=== PATIENT | female | born 1965 | race Caucasian/White ===

== ENCOUNTER 2016-09-22 18:21 | Inpatient (IN) | payer OTHER ==
[2016-09-22 18:21] VITALS: BMI 30.9
[2016-09-22] MEDS ORDERED: Enoxaparin 40 mg Syringe SC STA (20:27)
--- NOTE | 2016-09-22 20:31 | C.PDOC ---
History Of Present Illness 50 y/o female presents to ED for wound check. Patient states she had a right ankle surgery on 09/09/16 in [place] s/p fall and fracture. PT returned home yesterday, followed up with PMD today who instructed to come to ED for further evaluation. Patient states she has finished antibiotics and pain medication given by surgeon in [place]. Patient denies active bleeding, fever, SOB, no change in sensation, discharge or any other complaints at this time. Using wheelchair to get around, not bearing weight. Time Seen by Provider: 09/22/16 18:30 Chief Complaint (Nursing): Wound Check History Per: Patient, Family History/Exam Limitations: no limitations Onset/Duration Of Symptoms: Days Ago Location Of Injury: Right: Foot Past Medical History Reviewed: Historical Data, Nursing Documentation, Vital Signs Vital Signs: Last Vital Signs Temp 98.1 F 09/22/16 22:15 Pulse 93 H 09/22/16 22:15 Resp 22 09/22/16 22:15 BP 121/67 09/22/16 22:15 Pulse Ox 99 09/22/16 22:15 - Medical History PMH: Arthritis, Gall Bladder Disease, HTN, Hypercholesterolemia Family History: States: No Known Family Hx - Social History Hx Tobacco Use: No Hx Alcohol Use: No Hx Substance Use: No - Immunization History Hx Tetanus Toxoid Vaccination: No Hx Influenza Vaccination: Yes Hx Pneumococcal Vaccination: No Review Of Systems Except As Marked, All Systems Reviewed And Found Negative. Constitutional: Negative for: Fever, Chills Musculoskeletal: Positive for: Foot Pain Skin: Negative for: Rash Neurological: Negative for: Weakness, Numbness Physical Exam - Physical Exam Appears: Non-toxic, In Acute Distress (painful distress) Skin: Warm, Dry Head: Atraumatic, Normacephalic Eye(s): bilateral: Normal Inspection, EOMI Nose: Normal Oral Mucosa: Moist Neck: Normal ROM, Supple Chest: Symmetrical Cardiovascular: Rhythm Regular Respiratory: Normal Breath Sounds, No Accessory Muscle Use Extremity: No Normal ROM, Tenderness (diffuse), Calf Tenderness (mild), Capillary Refill (< 2 sec), No Deformity, Swelling (Diffuse swelling to foot and ankle with ecchymosis and mild erythema; small incision to lateral aspect w/ 4 ninfa no discharge, no erythema. Medial aspect : 4cm incision w/multiple ninfa mild erythema, no discharge), Other (Patient has a posterior splint on right foot) Pulses: Left Dorsalis Pedis: Normal, Right Dorsalis Pedis: Normal Neurological/Psych: Oriented x3, Normal Speech, Normal Sensation Gait: Unable To Assess ED Course And Treatment - Laboratory Results Result Diagrams: 09/22/16 21:52 09/22/16 21:52 O2 Sat by Pulse Oximetry: 97 (RA) Pulse Ox Interpretation: Normal Progress Note: Splint was removed and changed, no signs of infection. Patient was offered crutches but is unable to sustain balance, at baseline unsteady secondary to brain tumor and back surgery. Case discussed with Dr. Carson who agrees for patient to be admitted Disposition - Disposition Referrals: Silva Carson MD [Primary Care Provider] - Dwaine Greco MD [Staff Provider] - Disposition: HOME/ ROUTINE Disposition Time: 20:29 Condition: STABLE Additional Instructions: Rest, ice and elevate the area. Return to ER tomorrow for vascular test. Follow up with bone doctor in 1-2 days. Follow up with PMD in 1-2 days for further evaluation. Prescriptions: traMADol [Ultram] 50 mg PO Q8 #20 tab Instructions: Ankle Fracture (ED) - Clinical Impression Clinical Impression: Ankle fracture, Unsteady gait - PA / MEDICAL BILLING CODER / Resident Statement MD/DO has reviewed & agrees with the documentation as recorded. - Scribe Statement The provider has reviewed the documentation as recorded by the Alyibgurpreet Horn All medical record entries made by the Alyibgurpreet were at my direction and personally dictated by me. I have reviewed the chart and agree that the record accurately reflects my personal performance of the history, physical exam, medical decision making, and the department course for this patient. I have also personally directed, reviewed, and agree with the discharge instructions and disposition.
[2016-09-22] MEDS ORDERED: Enoxaparin 80 mg Syringe ONE (20:34)
[2016-09-22 21:56] LABS: BASO # 0.1 K/uL (0.0-0.2); BASO % 0.7 % (0.0-2.0); EOS # 0.2 K/uL (0.0-0.7); EOS % 1.9 % (0.0-4.0); HEMATOCRIT 31.8 % (34.0-47.0); LYMPH # 3.4 K/uL (1.0-4.3); LYMPH % 40.3 % (20.0-40.0); MEAN CELL VOLUME 76.1 fL (81.0-99.0); MEAN CORPUSCULAR HGB CONC 31.5 g/dL (33.0-37.0); MONO # 0.6 K/uL (0.0-0.8); MONO % 6.7 % (0.0-10.0); NRBC % 0.1 % (0.0-2.0); RED CELL DISTRIBUTION WIDTH 17.7 % (11.5-14.5); WHITE BLOOD COUNT 8.4 K/uL (4.8-10.8)
[2016-09-22] MEDS ORDERED: Morphine 4 MG/ML VIAL ONE (22:06)
[2016-09-22] MEDS ORDERED: Sodium Chloride 0.9% 1,000 ML ONE (22:07)
[2016-09-22 22:08] LABS: CHLORIDE 97 mmol/L (98-107)
[2016-09-22 22:09] LABS: POTASSIUM 4.3 mmol/L (3.6-5.2); SODIUM 136 mmol/L (132-148)
[2016-09-22 22:12] LABS: ALKALINE PHOSPHATASE 83 U/L (38-126); ALT/SGPT 34 U/L (9-52); AST/SGOT 33 U/L (14-36); BILIRUBIN,TOTAL 0.6 mg/dL (0.2-1.3); BLOOD UREA NITROGEN 7 mg/dL (7-17); CALCIUM 9.4 mg/dl (8.6-10.4); CARBON DIOXIDE 25 mmol/L (22-30); GFR AFRICAN-AMERICAN > 60; GLUCOSE,RANDOM 171 mg/dL (65-105); TOTAL PROTEIN 7.9 g/dL (6.3-8.3)
[2016-09-22] MEDS: Sodium Chloride 0.9% 1,000 ML IV SCH (22:15)
[2016-09-22 22:35] LABS: RBC URINE 18 /hpf (0-3); TRANSITIONAL EPITHIAL 3 /hpf (0-3); URINE BACTERIA OCC (<OCC); URINE BILIRUBIN NEGATIVE (NEGATIVE); URINE BLOOD 1+ (NEGATIVE); URINE COLOR Yellow (YELLOW); URINE GLUCOSE (UA) NORMAL (Normal); URINE KETONE NEGATIVE (NEGATIVE); URINE LEUKOCYTE ESTERASE 3+ Leu/uL (Negative); URINE PROTEIN NEGATIVE (NEGATIVE); URINE UROBILINOGEN NORMAL mg/dL (0.2-1.0); WBC URINE 83 /hpf (0-5)
[2016-09-22 23:07] VITALS: RESP 20
[2016-09-23] MEDS: Sodium Chloride 0.9% 1,000 ML IV SCH ×3 (06:23→21:46)
[2016-09-23] MEDS: (Novolog) Insulin Aspart, Recombinant 100 u/ml 10 ml vial SC SCH ×4 (08:15→21:47)
--- NOTE | 2016-09-23 09:01 | RAD ---
PROCEDURE: Right Ankle Radiographs. HISTORY: trauma, s/p surgery COMPARISON: None FINDINGS: BONES: A horizontal complete medial malleoli are fracture and a the comminuted spiral type distal fibular metaphyseal fracture are suggested. Medium malleolar fracture ends are approximately 2 mm. No further displacement appreciated. The posterior malleolus is not clearly appreciated -is overlying bony anatomy here noted. Three pins are present 1 and distal fibular fracture 2 its fixing the medial malleolar fracture at the tip of these pins project beyond the lateral tibial cortex frontal view. A medial malleoli are screw projects diagonally projects anteriorly in the lateral view. No 3 mm or greater displaced fracture fragments note. No dislocation noted the fibular fracture extends into the tibial fibular syndesmosis. The medial malleolar fractures at the B of plafond level with intra-articular extension noted Casting splinting and skin ninfa are present Posterior and inferior calcaneal spurring and dorsal mid tarsal osseous spurring are present. JOINTS: Fracture extensions as above. . Ankle mortise maintained. Talar dome intact SOFT TISSUES: Postop changes OTHER FINDINGS: Postop changes IMPRESSION: Status post reduction and internal fixation of a bimalleolar fracture.
[2016-09-23] MEDS ORDERED: Ergocalciferol 50,000 Intl Units Cap PO SCH (10:00)
--- NOTE | 2016-09-23 10:02 | CP.PCM.HP ---
Past Patient History - Past Medical History & Family History Past Medical History?: Yes - Past Social History Smoking Status: Never Smoked - CARDIAC Hx Cardiac Disorders: Yes Hx Hypercholesterolemia: Yes Hx Hypertension: Yes - PULMONARY Hx Respiratory Disorders: No - NEUROLOGICAL Hx Neurological Disorder: Yes (NEUROPATHY) Hx Vertigo: Yes - HEENT Hx HEENT Problems: No - RENAL Hx Chronic Kidney Disease: No - ENDOCRINE/METABOLIC Hx Endocrine Disorders: Yes Hx Diabetes Mellitus Type 2: Yes - HEMATOLOGICAL/ONCOLOGICAL Hx Blood Disorders: No - INTEGUMENTARY Hx Dermatological Problems: No - MUSCULOSKELETAL/RHEUMATOLOGICAL Hx Musculoskeletal Disorders: Yes Hx Arthritis: Yes Hx Falls: Yes - GASTROINTESTINAL Hx Gastrointestinal Disorders: Yes Hx Gall Bladder Disease: Yes - GENITOURINARY/GYNECOLOGICAL Hx Genitourinary Disorders: No - PSYCHIATRIC Hx Psychophysiologic Disorder: No Hx Substance Use: No - SURGICAL HISTORY Hx Surgeries: Yes Hx Musculoskeletal Surgery: Yes (LUMBAR X 2) Other/Comment: R ankle surgery - ANESTHESIA Hx Anesthesia: Yes Hx Anesthesia Reactions: No Hx Malignant Hyperthermia: No Meds Home Medications: Home Medication List Medication Instructions Recorded Confirmed Type traMADol [Ultram] 50 mg PO Q8 #20 tab 09/22/16 Rx Allergies/Adverse Reactions: Allergies Allergy/AdvReac Type Severity Reaction Status Date / Time No Known Allergies Allergy Verified 09/22/16 18:47 Results - Vital Signs Recent Vital Signs: Last Vital Signs Temp 98.0 F 09/23/16 07:40 Pulse 94 H 09/23/16 07:40 Resp 20 09/23/16 07:40 BP 124/83 09/23/16 07:40 Pulse Ox 99 09/23/16 07:40 - Labs Result Diagrams: 09/22/16 21:52 09/22/16 21:52 Labs: Laboratory Results - last 24 hr 09/22/16 09/22/16 09/22/16 21:52 21:52 22:35 WBC 8.4 RBC 4.18 Hgb 10.0 L Hct 31.8 L MCV 76.1 L MCH 24.0 L MCHC 31.5 L RDW 17.7 H Plt Count 385 MPV 7.0 L Neut % (Auto) 50.4 Lymph % (Auto) 40.3 H [place] % (Auto) 6.7 Eos % (Auto) 1.9 Baso % (Auto) 0.7 Neut # 4.2 Lymph # 3.4 [place] # 0.6 Eos # 0.2 Baso # 0.1 Sodium 136 Potassium 4.3 Chloride 97 L Carbon Dioxide 25 Anion Gap 18 BUN 7 Creatinine 0.6 L Est GFR ( Amer) > 60 Est GFR (Non-Af Amer) > 60 POC Glucose (mg/dL) Random Glucose 171 H Calcium 9.4 Total Bilirubin 0.6 AST 33 ALT 34 Alkaline Phosphatase 83 Total Protein 7.9 Albumin 4.0 Globulin 3.9 Albumin/Globulin Ratio 1.0 Urine Color Yellow Urine Clarity Hazy Urine pH 6.0 Ur Specific [place] 1.009 Urine Protein Negative Urine Glucose (UA) Normal Urine Ketones Negative Urine Blood 1+ H Urine Nitrate Negative Urine Bilirubin Negative Urine Urobilinogen Normal Ur Leukocyte Esterase 3+ H Urine WBC (Auto) 83 H Urine RBC (Auto) 18 H Ur Squamous Epith Cells 13 H Ur Transition Epith Cell 3 Urine Bacteria Occ H Ur Yeast w Hyphae Rare H 09/23/16 07:17 WBC RBC Hgb Hct MCV MCH MCHC RDW Plt Count MPV Neut % (Auto) Lymph % (Auto) [place] % (Auto) Eos % (Auto) Baso % (Auto) Neut # Lymph # [place] # Eos # Baso # Sodium Potassium Chloride Carbon Dioxide Anion Gap BUN Creatinine Est GFR ( Amer) Est GFR (Non-Af Amer) POC Glucose (mg/dL) 135 H Random Glucose Calcium Total Bilirubin AST ALT Alkaline Phosphatase Total Protein Albumin Globulin Albumin/Globulin Ratio Urine Color Urine Clarity Urine pH Ur Specific [place] Urine Protein Urine Glucose (UA) Urine Ketones Urine Blood Urine Nitrate Urine Bilirubin Urine Urobilinogen Ur Leukocyte Esterase Urine WBC (Auto) Urine RBC (Auto) Ur Squamous Epith Cells Ur Transition Epith Cell Urine Bacteria Ur Yeast w Hyphae
[2016-09-23] MEDS ORDERED: (Lantus) Insulin Glargine, Recombinant SC ONE (10:08)
[2016-09-23] MEDS: Enoxaparin 40 mg Syringe SC SCH (10:57)
[2016-09-23] MEDS: Calcium-Vit D 500 mg-200 Units Tab UD PO SCH (11:13)
[2016-09-23] MEDS: cefTRIAXone IV 1 gm in Dextros 50 ML IVPB SCH (12:29)
--- NOTE | 2016-09-23 12:41 | CP.PCM.CON ---
History of Present Illness - History of Present Illness History of Present Illness: Orthopedic consultation requested Dr. Greco/Gerhard for right ankle pain 50F complains of right ankle pain after fall 2 weeks ago in [place], where she had surgery for the ankle fracture. She arrived home, and was sent by PMD to ER for ankle pain. She says she has some burning type pain on inside and outside of ankle. She says that she had infection while she was in [place] and was given antibiotics. She has had prior back surgery and walks with cane at baseline. She lives with and has 5 steps. She did not receive any blood thinners post surgery. Son requests staple removal. Son and at bedside. Patient also complains of vaginal itching and discharge. Denies CP/SOB/dizziness/palpitations/numbness/tingling/nausea/vomiting/fever/ chills PMH: HTN, DM II, neuropathy, high cholesterol Review of Systems - Review of Systems All systems: reviewed and no additional remarkable complaints except - Constitutional Additional comments: denies fever/chills - Cardiovascular Cardiovascular: As Per HPI - Respiratory Respiratory: As Per HPI - Gastrointestinal Gastrointestinal: As Per HPI - Musculoskeletal Musculoskeletal: As Per HPI - Neurological Neurological: Frequent Falls Past Patient History - Past Medical History & Family History Past Medical History?: Yes Past Family History: Reviewed and not pertinent - Past Social History Smoking Status: Never Smoked - CARDIAC Hx Cardiac Disorders: Yes Hx Hypercholesterolemia: Yes Hx Hypertension: Yes - PULMONARY Hx Respiratory Disorders: No - NEUROLOGICAL Hx Neurological Disorder: Yes (NEUROPATHY) Hx Vertigo: Yes - HEENT Hx HEENT Problems: No - RENAL Hx Chronic Kidney Disease: No - ENDOCRINE/METABOLIC Hx Endocrine Disorders: Yes Hx Diabetes Mellitus Type 2: Yes - HEMATOLOGICAL/ONCOLOGICAL Hx Blood Disorders: No - INTEGUMENTARY Hx Dermatological Problems: No - MUSCULOSKELETAL/RHEUMATOLOGICAL Hx Musculoskeletal Disorders: Yes Hx Arthritis: Yes Hx Falls: Yes - GASTROINTESTINAL Hx Gastrointestinal Disorders: Yes Hx Gall Bladder Disease: Yes - GENITOURINARY/GYNECOLOGICAL Hx Genitourinary Disorders: No - PSYCHIATRIC Hx Psychophysiologic Disorder: No Hx Substance Use: No - SURGICAL HISTORY Hx Surgeries: Yes Hx Musculoskeletal Surgery: Yes (LUMBAR X 2) Other/Comment: R ankle surgery - ANESTHESIA Hx Anesthesia: Yes Hx Anesthesia Reactions: No Hx Malignant Hyperthermia: No Meds Home Medications: Home Medication List Medication Instructions Recorded Confirmed Type traMADol [Ultram] 50 mg PO Q8 #20 tab 09/22/16 Rx Allergies/Adverse Reactions: Allergies Allergy/AdvReac Type Severity Reaction Status Date / Time No Known Allergies Allergy Verified 09/22/16 18:47 - Medications Medications: Current Medications Aspirin (Ecotrin) 81 mg PO DAILY [facility] Last Admin: 09/23/16 10:55 Dose: 81 mg Calcium/Vitamin D (Oyster Shell Calcium/Vitamin D 500 Mg-200 Iu) 1 tab PO DAILY [facility] Last Admin: 09/23/16 11:13 Dose: 1 tab Cyclobenzaprine HCl (Flexeril) 10 mg PO BID [facility] Last Admin: 09/23/16 10:55 Dose: 10 mg Enoxaparin Sodium (Lovenox) 40 mg SC DAILY [facility] Last Admin: 09/23/16 10:57 Dose: 40 mg Ergocalciferol (Drisdol 50,000 Intl Units Cap) 1 cap PO QWK [facility] Gabapentin (Neurontin) 800 mg PO BID [facility] Glimepiride (Amaryl) 2 mg PO BID [facility] Last Admin: 09/23/16 10:55 Dose: 2 mg Sodium Chloride (Sodium Chloride 0.9%) 1,000 mls @ 100 mls/hr IV .Q10H [facility] Last Admin: 09/23/16 06:23 Dose: 100 mls/hr Ceftriaxone Sodium (Rocephin Iv 1 Gm Duplex) 50 mls @ 100 mls/hr IVPB DAILY [facility] Insulin Aspart (Novolog) 0 unit SC ACHS [facility] PRN Reason: Protocol Last Admin: 09/23/16 08:15 Dose: Not Given Insulin Glargine (Lantus) 15 unit SC HS [facility] Insulin Glargine (Lantus) 40 unit SC ACB [facility] Meclizine HCl (Antivert) 12.5 mg PO BID [facility] Last Admin: 09/23/16 10:55 Dose: 12.5 mg Metformin HCl (Glucophage) 1,000 mg PO BIDBS [facility] Last Admin: 09/23/16 11:10 Dose: 1,000 mg Pneumococcal Polyvalent Vaccine (Pneumovax 23 Vaccine) 0.5 ml IM .ONCE ONE Stop: 09/25/16 10:01 Sitagliptin Phosphate (Januvia) 100 mg PO DAILY [facility] Last Admin: 09/23/16 10:55 Dose: 100 mg Tramadol HCl (Ultram) 50 mg PO BID [facility] Last Admin: 09/23/16 11:10 Dose: 50 mg Physical Exam - Constitutional Appears: Well, No Acute Distress - Head Exam Head Exam: ATRAUMATIC, NORMAL INSPECTION - Neck Exam Neck exam: Positive for: Full Rom, Normal Inspection - Respiratory Exam Respiratory Exam: NORMAL BREATHING PATTERN - Extremities Exam Additional comments: RLE: splint removed, posterior splint in PF noted moderate swelling to foot and ankle, +DP pulse, toes warm, +flex/ext toes. Complains of pain with movement of ankle. Lateral incision intact, medial incision also intact, mild erythema, but entire foot and ankle swollen, more than would be expected for two weeks post operatively. Right calf tender, no palpable cords. Sensation intact. - Neurological Exam Neurological exam: Alert, Oriented x3 - Psychiatric Exam Psychiatric exam: Normal Affect, Normal Mood - Skin Skin Exam: Dry, Warm Additional comments: incisions intact minimal erythema to medial incision site, ?inflammatory Results - Vital Signs Recent Vital Signs: Last Vital Signs Temp 98.0 F 09/23/16 07:40 Pulse 94 H 09/23/16 07:40 Resp 20 09/23/16 07:40 BP 124/83 09/23/16 07:40 Pulse Ox 99 09/23/16 07:40 - Labs Result Diagrams: 09/22/16 21:52 09/22/16 21:52 Labs: Laboratory Results - last 24 hr 09/22/16 09/22/16 09/22/16 21:52 21:52 22:35 WBC 8.4 RBC 4.18 Hgb 10.0 L Hct 31.8 L MCV 76.1 L MCH 24.0 L MCHC 31.5 L RDW 17.7 H Plt Count 385 MPV 7.0 L Neut % (Auto) 50.4 Lymph % (Auto) 40.3 H [place] % (Auto) 6.7 Eos % (Auto) 1.9 Baso % (Auto) 0.7 Neut # 4.2 Lymph # 3.4 [place] # 0.6 Eos # 0.2 Baso # 0.1 Sodium 136 Potassium 4.3 Chloride 97 L Carbon Dioxide 25 Anion Gap 18 BUN 7 Creatinine 0.6 L Est GFR ( Amer) > 60 Est GFR (Non-Af Amer) > 60 POC Glucose (mg/dL) Random Glucose 171 H Calcium 9.4 Total Bilirubin 0.6 AST 33 ALT 34 Alkaline Phosphatase 83 Total Protein 7.9 Albumin 4.0 Globulin 3.9 Albumin/Globulin Ratio 1.0 Urine Color Yellow Urine Clarity Hazy Urine pH 6.0 Ur Specific [place] 1.009 Urine Protein Negative Urine Glucose (UA) Normal Urine Ketones Negative Urine Blood 1+ H Urine Nitrate Negative Urine Bilirubin Negative Urine Urobilinogen Normal Ur Leukocyte Esterase 3+ H Urine WBC (Auto) 83 H Urine RBC (Auto) 18 H Ur Squamous Epith Cells 13 H Ur Transition Epith Cell 3 Urine Bacteria Occ H Ur Yeast w Hyphae Rare H 09/23/16 09/23/16 07:17 11:13 WBC RBC Hgb Hct MCV MCH MCHC RDW Plt Count MPV Neut % (Auto) Lymph % (Auto) [place] % (Auto) Eos % (Auto) Baso % (Auto) Neut # Lymph # [place] # Eos # Baso # Sodium Potassium Chloride Carbon Dioxide Anion Gap BUN Creatinine Est GFR ( Amer) Est GFR (Non-Af Amer) POC Glucose (mg/dL) 135 H 291 H Random Glucose Calcium Total Bilirubin AST ALT Alkaline Phosphatase Total Protein Albumin Globulin Albumin/Globulin Ratio Urine Color Urine Clarity Urine pH Ur Specific [place] Urine Protein Urine Glucose (UA) Urine Ketones Urine Blood Urine Nitrate Urine Bilirubin Urine Urobilinogen Ur Leukocyte Esterase Urine WBC (Auto) Urine RBC (Auto) Ur Squamous Epith Cells Ur Transition Epith Cell Urine Bacteria Ur Yeast w Hyphae Assessment & Plan (1) Closed bimalleolar fracture of right ankle Assessment and Plan: venous doppler r/o dvt, swelling/long flight VTE proph pt on lovenox IS reapplication of posterior/u splint as splint in plantar flexion elevation, hitch foot of bed ninfa will not be removed as ankle is quite swollen at this time case and imaging reviewed with Dr. Hennessy, no further orthopedic intervention indicated at this time patient will need to f/u as outpatient with serial imaging to assess fracture healing discussed with patient and family at bedside risk of frequent falls/wb could increase risk of fx/non union/malunion strict NWB Status: Acute (2) Unsteady gait Assessment and Plan: PT/OT NWB possible rehab placement Status: Acute (3) Vaginal candidiasis Assessment and Plan: yeast seen on u/a as well possibly secondary to recent antibiotic use diflucan ordered Status: Acute (4) UTI (urinary tract infection) Assessment and Plan: on admission rocephin per Dr. umaña Status: Acute Radiology Interpretation - Notes: Notes:: Patient Name / ID : SHAKIRA ROSE D / [id number] Exam Date : 09/22/2016 19:02:25 ( Approved ) Study Comment : Sex / Age : F / 50Y Creator : Delores Oshea V. Dictator : Delores Oshea V. Office Workforce Planner : Ironworker Machine Operator : Delores Oshea V. Approver2 : Report Date : 09/23/2016 08:59:44 My Comment : PROCEDURE: Right Ankle Radiographs. HISTORY: trauma, s/p surgery COMPARISON: None FINDINGS: BONES: A horizontal complete medial malleoli are fracture and a the comminuted spiral type distal fibular metaphyseal fracture are suggested. Medium malleolar fracture ends are approximately 2 mm. No further displacement appreciated. The posterior malleolus is not clearly appreciated -is overlying bony anatomy here noted. Three pins are present 1 and distal fibular fracture 2 its fixing the medial malleolar fracture at the tip of these pins project beyond the lateral tibial cortex frontal view. A medial malleoli are screw projects diagonally projects anteriorly in the lateral view. No 3 mm or greater displaced fracture fragments note. No dislocation noted the fibular fracture extends into the tibial fibular syndesmosis. The medial malleolar fractures at the B of plafond level with intra-articular extension noted Casting splinting and skin ninfa are present Posterior and inferior calcaneal spurring and dorsal mid tarsal osseous spurring are present. JOINTS: Fracture extensions as above. . Ankle mortise maintained. Talar dome intact SOFT TISSUES: Postop changes OTHER FINDINGS: Postop changes IMPRESSION: Status post reduction and internal fixation of a bimalleolar fracture.
[2016-09-23] MEDS ORDERED: (Lantus) Insulin Glargine, Recombinant SC SCH (22:00)
[2016-09-23] MEDS ORDERED: HYDROmorphone 1 mg/ml ISec IVP PRN (22:22)
[2016-09-24] MEDS: Sodium Chloride 0.9% 1,000 ML IV SCH ×3 (03:45→14:31)
[2016-09-24 06:18] LABS: RBC URINE < 1 /hpf (0-3); URINE BACTERIA MANY (<OCC); URINE BILIRUBIN NEGATIVE (NEGATIVE); URINE BLOOD 1+ (NEGATIVE); URINE COLOR Straw (YELLOW); URINE GLUCOSE (UA) NORMAL (Normal); URINE KETONE NEGATIVE (NEGATIVE); URINE LEUKOCYTE ESTERASE 2+ Leu/uL (Negative); URINE PROTEIN NEGATIVE (NEGATIVE); URINE UROBILINOGEN NORMAL mg/dL (0.2-1.0); WBC URINE 3 /hpf (0-5)
[2016-09-24 06:46] LABS: BASO % 0.6 % (0.0-2.0); EOS # 0.2 K/uL (0.0-0.7); EOS % 3.4 % (0.0-4.0); LYMPH # 2.9 K/uL (1.0-4.3); LYMPH % 57.5 % (20.0-40.0); MEAN CELL VOLUME 76.7 fL (81.0-99.0); MEAN CORPUSCULAR HEMOGLOBIN 24.6 pg (27.0-31.0); MEAN CORPUSCULAR HGB CONC 32.2 g/dL (33.0-37.0); MONO # 0.4 K/uL (0.0-0.8); MONO % 8.4 % (0.0-10.0); NRBC % 0.1 % (0.0-2.0); RED CELL DISTRIBUTION WIDTH 17.2 % (11.5-14.5); WHITE BLOOD COUNT 5.1 K/uL (4.8-10.8)
[2016-09-24 06:53] LABS: CHLORIDE 101 mmol/L (98-107)
[2016-09-24 06:54] LABS: POTASSIUM 4.2 mmol/L (3.6-5.2); SODIUM 138 mmol/L (132-148)
[2016-09-24 06:56] LABS: ALB/GLOB RATIO 1.1 (1.0-2.1); ALKALINE PHOSPHATASE 63 U/L (38-126); AST/SGOT 26 U/L (14-36); BILIRUBIN,TOTAL 0.5 mg/dL (0.2-1.3); BLOOD UREA NITROGEN 3 mg/dL (7-17); CARBON DIOXIDE 29 mmol/L (22-30); GFR AFRICAN-AMERICAN > 60; TOTAL PROTEIN 6.8 g/dL (6.3-8.3)
[2016-09-24 06:57] LABS: ALT/SGPT 25 U/L (9-52); CALCIUM 8.9 mg/dl (8.6-10.4); GLUCOSE,RANDOM 102 mg/dL (65-105)
[2016-09-24] MEDS ORDERED: (Lantus) Insulin Glargine, Recombinant SC SCH (07:30)
[2016-09-24] MEDS: (Novolog) Insulin Aspart, Recombinant 100 u/ml 10 ml vial SC SCH ×3 (08:02→17:37)
[2016-09-24 08:14] VITALS: BP 152/79; PULSE 80; TEMP 97.9; O2SAT 98
--- NOTE | 2016-09-24 09:40 | CP.PCM.PN ---
Subjective - Date & Time of Evaluation Date of Evaluation: 09/24/16 Time of Evaluation: 09:40 - Subjective Subjective: Patient states pain in ankle is controlled. Review of Systems - Review of Systems All systems: reviewed and no additional remarkable complaints except - Musculoskeletal Musculoskeletal: As Par HPI - Neurological Neurological: As Per HPI Objective - Vital Signs/Intake and Output Vital Signs (last 24 hours): Temp Pulse Resp BP Pulse Ox 97.9 F 80 20 152/79 H 98 09/24/16 08:00 09/24/16 08:00 09/24/16 08:00 09/24/16 08:00 09/24/16 08:00 Intake and Output: 09/24/16 09/24/16 06:59 18:59 Intake Total 800 800 Balance 800 800 - Medications Medications: Current Medications Aspirin (Ecotrin) 81 mg PO DAILY [facility] Last Admin: 09/23/16 10:55 Dose: 81 mg Calcium/Vitamin D (Oyster Shell Calcium/Vitamin D 500 Mg-200 Iu) 1 tab PO DAILY [facility] Last Admin: 09/23/16 11:13 Dose: 1 tab Cyclobenzaprine HCl (Flexeril) 10 mg PO BID [facility] Last Admin: 09/23/16 17:39 Dose: 10 mg Enoxaparin Sodium (Lovenox) 40 mg SC DAILY [facility] Last Admin: 09/23/16 10:57 Dose: 40 mg Ergocalciferol (Drisdol 50,000 Intl Units Cap) 1 cap PO QWK [facility] Gabapentin (Neurontin) 800 mg PO BID [facility] Last Admin: 09/23/16 17:39 Dose: 800 mg Glimepiride (Amaryl) 2 mg PO BID [facility] Last Admin: 09/23/16 17:39 Dose: 2 mg Hydromorphone HCl (Dilaudid) 1 mg IVP Q8 PRN PRN Reason: Pain, severe (8-10) Last Admin: 09/24/16 01:49 Dose: 1 mg Sodium Chloride (Sodium Chloride 0.9%) 1,000 mls @ 100 mls/hr IV .Q10H [facility] Last Admin: 09/24/16 06:10 Dose: 100 mls/hr Ceftriaxone Sodium (Rocephin Iv 1 Gm Duplex) 50 mls @ 100 mls/hr IVPB DAILY [facility] Last Admin: 09/23/16 12:29 Dose: 100 mls/hr Insulin Aspart (Novolog) 0 unit SC ACHS [facility] PRN Reason: Protocol Last Admin: 09/24/16 08:02 Dose: Not Given Insulin Glargine (Lantus) 15 unit SC HS [facility] Last Admin: 09/23/16 21:46 Dose: 15 u Insulin Glargine (Lantus) 40 unit SC ACB [facility] Meclizine HCl (Antivert) 12.5 mg PO BID [facility] Last Admin: 09/23/16 17:39 Dose: 12.5 mg Metformin HCl (Glucophage) 1,000 mg PO BIDBS [facility] Last Admin: 09/23/16 17:39 Dose: 1,000 mg Pneumococcal Polyvalent Vaccine (Pneumovax 23 Vaccine) 0.5 ml IM .ONCE ONE Stop: 09/25/16 10:01 Sitagliptin Phosphate (Januvia) 100 mg PO DAILY [facility] Last Admin: 09/23/16 10:55 Dose: 100 mg Temazepam (Restoril) 15 mg PO HS PRN PRN Reason: for sleep Tramadol HCl (Ultram) 50 mg PO BID [facility] Last Admin: 09/23/16 17:38 Dose: 50 mg - Labs Labs: 09/24/16 06:19 09/24/16 06:19 - Constitutional Appears: Well, No Acute Distress - Extremities Exam Additional comments: slightly less swelling noted to foot foot not elevated, reinforced to staff to elevate on pillows and hitch foot of bed sensation intact toes warm, good cap refill - Neurological Exam Neurological Exam: Awake, Oriented x3 Neuro motor strength exam: Right Lower Extremity: 5 (toes flex/ext) - Psychiatric Exam Psychiatric exam: Normal Affect, Normal Mood - Skin Skin Exam: Dry, Intact, Normal Color, Warm Assessment and Plan (1) Closed bimalleolar fracture of right ankle Assessment & Plan: Dopplers ordered yesterday now completed, negative for DVT LLE and to knee RLE PT/OT OOB VTE proph, on lovenox elevation orthopedically stable for d/c f/u as outpatient within 1 week for reevaluation/staple removal strict NWB d/w Dr. Hennessy, agrees with above Status: Acute (2) Unsteady gait Assessment & Plan: PT/OT Status: Acute (3) Vaginal candidiasis Assessment & Plan: s/p diflucan, f/u progress Status: Acute (4) UTI (urinary tract infection) Assessment & Plan: on rocephin per medical team Status: Acute
[2016-09-24] MEDS: Enoxaparin 40 mg Syringe SC SCH (10:39)
[2016-09-24] MEDS: Calcium-Vit D 500 mg-200 Units Tab UD PO SCH (10:40)
[2016-09-24] MEDS: cefTRIAXone IV 1 gm in Dextros 50 ML IVPB SCH (10:47)
--- NOTE | 2016-09-24 17:13 | CP.PCM.PN ---
Subjective - Date & Time of Evaluation Date of Evaluation: 09/24/16 Time of Evaluation: 17:13 - Subjective Subjective: Alert, oriented, NAD. Objective - Vital Signs/Intake and Output Vital Signs (last 24 hours): Temp Pulse Resp BP Pulse Ox 97.9 F 80 20 152/79 H 98 09/24/16 08:00 09/24/16 08:00 09/24/16 08:00 09/24/16 08:00 09/24/16 08:00 Intake and Output: 09/24/16 09/24/16 06:59 18:59 Intake Total 800 1950 Balance 800 1950 - Medications Medications: Current Medications Aspirin (Ecotrin) 81 mg PO DAILY [facility] Last Admin: 09/24/16 10:37 Dose: 81 mg Calcium/Vitamin D (Oyster Shell Calcium/Vitamin D 500 Mg-200 Iu) 1 tab PO DAILY [facility] Last Admin: 09/24/16 10:40 Dose: Not Given Clotrimazole (Lotrimin 1%) 0 gm TOP BID [facility] Cyclobenzaprine HCl (Flexeril) 10 mg PO BID [facility] Last Admin: 09/24/16 10:38 Dose: 10 mg Enoxaparin Sodium (Lovenox) 40 mg SC DAILY [facility] Last Admin: 09/24/16 10:39 Dose: 40 mg Ergocalciferol (Drisdol 50,000 Intl Units Cap) 1 cap PO QWK [facility] Fluconazole (Diflucan) 200 mg PO DAILY [facility] Gabapentin (Neurontin) 800 mg PO BID [facility] Last Admin: 09/24/16 10:37 Dose: 800 mg Glimepiride (Amaryl) 2 mg PO BID [facility] Last Admin: 09/24/16 10:38 Dose: 2 mg Hydromorphone HCl (Dilaudid) 1 mg IVP Q8 PRN PRN Reason: Pain, severe (8-10) Last Admin: 09/24/16 01:49 Dose: 1 mg Sodium Chloride (Sodium Chloride 0.9%) 1,000 mls @ 100 mls/hr IV .Q10H [facility] Last Admin: 09/24/16 14:31 Dose: Not Given Ceftriaxone Sodium (Rocephin Iv 1 Gm Duplex) 50 mls @ 100 mls/hr IVPB DAILY [facility] Last Admin: 09/24/16 10:47 Dose: 100 mls/hr Insulin Aspart (Novolog) 0 unit SC ACHS [facility] PRN Reason: Protocol Last Admin: 09/24/16 12:49 Dose: 2 unit Insulin Glargine (Lantus) 15 unit SC HS [facility] Last Admin: 09/23/16 21:46 Dose: 15 u Insulin Glargine (Lantus) 40 unit SC ACB [facility] Last Admin: 09/24/16 10:39 Dose: 40 units Meclizine HCl (Antivert) 12.5 mg PO BID [facility] Last Admin: 09/24/16 10:37 Dose: 12.5 mg Metformin HCl (Glucophage) 1,000 mg PO BIDBS [facility] Last Admin: 09/24/16 10:38 Dose: 1,000 mg Pneumococcal Polyvalent Vaccine (Pneumovax 23 Vaccine) 0.5 ml IM .ONCE ONE Stop: 09/25/16 10:01 Sitagliptin Phosphate (Januvia) 100 mg PO DAILY [facility] Last Admin: 09/24/16 10:38 Dose: 100 mg Temazepam (Restoril) 15 mg PO HS PRN PRN Reason: for sleep Tramadol HCl (Ultram) 50 mg PO BID [facility] Last Admin: 09/24/16 10:38 Dose: 50 mg - Labs Labs: 09/24/16 06:19 09/24/16 06:19 Assessment and Plan - Assessment and Plan (Free Text) Assessment: Patient with right ankle fracture, seen and examined. Alert and oriented x3, no acute pain on the ankle. c/o vaginal itching and burning. Cleared by ortho for discharge with strict non weight bearing to right leg. D/W DR Adri Carson, discharge plan for today. Home PT arranged. Advised to follow up with ortho in 2 weeks for staple removal. cipro, lotrimin cream and diflucan given for possible UTI. Advised to follow up with DR Adri Carson in 1 week.
[2016-09-24] MEDS ORDERED: Pneumococcal 23-Valent Vaccine IM ONE (17:45)
[2016-09-24] MEDS ORDERED: Clotrimazole 1% Cream(30 gm) TOP SCH (18:00)
--- NOTE | 2016-09-24 18:01 | CP.PCM.PN ---
Subjective - Date & Time of Evaluation Date of Evaluation: 09/24/16 Time of Evaluation: 07:40 - Subjective Subjective: clinically same Objective - Vital Signs/Intake and Output Vital Signs (last 24 hours): Temp Pulse Resp BP Pulse Ox 97.9 F 80 20 152/79 H 98 09/24/16 08:00 09/24/16 08:00 09/24/16 08:00 09/24/16 08:00 09/24/16 08:00 Intake and Output: 09/24/16 09/24/16 06:59 18:59 Intake Total 800 1950 Balance 800 1950 - Medications Medications: Current Medications Aspirin (Ecotrin) 81 mg PO DAILY [facility] Last Admin: 09/24/16 10:37 Dose: 81 mg Calcium/Vitamin D (Oyster Shell Calcium/Vitamin D 500 Mg-200 Iu) 1 tab PO DAILY [facility] Last Admin: 09/24/16 10:40 Dose: Not Given Clotrimazole (Lotrimin 1%) 0 gm TOP BID [facility] Last Admin: 09/24/16 17:36 Dose: 1 applic Cyclobenzaprine HCl (Flexeril) 10 mg PO BID [facility] Last Admin: 09/24/16 17:33 Dose: 10 mg Enoxaparin Sodium (Lovenox) 40 mg SC DAILY [facility] Last Admin: 09/24/16 10:39 Dose: 40 mg Ergocalciferol (Drisdol 50,000 Intl Units Cap) 1 cap PO QWK [facility] Fluconazole (Diflucan) 200 mg PO DAILY [facility] Last Admin: 09/24/16 17:32 Dose: 200 mg Gabapentin (Neurontin) 800 mg PO BID [facility] Last Admin: 09/24/16 17:35 Dose: 800 mg Glimepiride (Amaryl) 2 mg PO BID [facility] Last Admin: 09/24/16 17:32 Dose: 2 mg Hydromorphone HCl (Dilaudid) 1 mg IVP Q8 PRN PRN Reason: Pain, severe (8-10) Last Admin: 09/24/16 01:49 Dose: 1 mg Sodium Chloride (Sodium Chloride 0.9%) 1,000 mls @ 100 mls/hr IV .Q10H [facility] Last Admin: 09/24/16 14:31 Dose: Not Given Ceftriaxone Sodium (Rocephin Iv 1 Gm Duplex) 50 mls @ 100 mls/hr IVPB DAILY [facility] Last Admin: 09/24/16 10:47 Dose: 100 mls/hr Insulin Aspart (Novolog) 0 unit SC ACHS [facility] PRN Reason: Protocol Last Admin: 09/24/16 17:37 Dose: Not Given Insulin Glargine (Lantus) 15 unit SC HS [facility] Last Admin: 09/23/16 21:46 Dose: 15 u Insulin Glargine (Lantus) 40 unit SC ACB [facility] Last Admin: 09/24/16 10:39 Dose: 40 units Meclizine HCl (Antivert) 12.5 mg PO BID [facility] Last Admin: 09/24/16 17:33 Dose: 12.5 mg Metformin HCl (Glucophage) 1,000 mg PO BIDBS [facility] Last Admin: 09/24/16 17:33 Dose: 1,000 mg Sitagliptin Phosphate (Januvia) 100 mg PO DAILY [facility] Last Admin: 09/24/16 10:38 Dose: 100 mg Temazepam (Restoril) 15 mg PO HS PRN PRN Reason: for sleep Tramadol HCl (Ultram) 50 mg PO BID [facility] Last Admin: 09/24/16 17:32 Dose: 50 mg - Labs Labs: 09/24/16 06:19 09/24/16 06:19
--- NOTE | 2016-09-25 10:25 | VASCLAB ---
PROCEDURE: Lower Extremity Venous Duplex Exam. HISTORY: leg swelling, s/p ankle ORIF PRIORS: None. TECHNIQUE: Bilateral common femoral, femoral, popliteal and posterior tibial, peroneal and great saphenous veins were evaluated. Flow was assessed with color Doppler, compressibility, assessment of phasic flow and augmentation response. Report prepared by OBDULIA Hightower FINDINGS: RIGHT: 1. Common Femoral Vein: 1.1. Compressibility - Fully compressible: Thrombus - None : Flow - Phasic: Augmentation -Normal: Reflux - None. 2. Femoral Vein: 2.1. Compressibility - Fully compressible: Thrombus - None : Flow - Phasic: Augmentation -Normal: Reflux - None. 3. Popliteal Vein: 3.1. Compressibility - Fully compressible: Thrombus - None : Flow - Phasic: Augmentation -Normal: Reflux - None. 4. LIMITED EXAM OF RIGHT SIDE. LEFT: 1. Common Femoral Vein: 1.1. Compressibility - Fully compressible: Thrombus - None: Flow - Phasic: Augmentation -Normal: Reflux - None. 2. Femoral Vein: 2.1. Compressibility - Fully compressible: Thrombus - None: Flow - Phasic: Augmentation -Normal: Reflux - None. 3. Popliteal Vein: 3.1. Compressibility - Fully compressible: Thrombus - None : Flow - Phasic: Augmentation -Normal: Reflux - None. 4. Posterior Tibial Vein: 4.1. Compressibility - Fully compressible: Thrombus - None: Flow - Phasic: Augmentation -Normal: Reflux - None. 5. Peroneal Vein: 5.1. Compressibility - Fully compressible: Thrombus - None: Flow - Phasic: Augmentation -Normal: Reflux - None. 6. Great Saphenous Vein: 6.1. Compressibility - Fully compressible: Thrombus - None: Flow - Phasic: Augmentation - Normal: Reflux - None. OTHER FINDINGS: Right: None significant. Left: None significant. IMPRESSION: Right: No evidence of deep or superficial vein thrombosis of the right lower extremity, for those imaged veins. Unable to examine below the knee level, due to splint/cast in area. Left: No evidence of deep or superficial vein thrombosis of the left lower extremity. Normal valve function noted of the left side.
== END 2016-09-24 20:15 | disposition home or self-care (01) | DRG 253 ==
LOC: SUPCPDRO 18:21 → C.ER 18:21 → C.3T 21:36
PROVIDERS: ADMIT Internal Medicine Nephrology; ATTEND Internal Medicine Nephrology
DX: S82.841A Displaced bimalleolar fracture of right lower leg, initial encounter for closed fracture (principal); B37.3 Candidiasis of vulva and vagina; E11.40 Type 2 diabetes mellitus with diabetic neuropathy, unspecified; I10 Essential (primary) hypertension; N39.0 Urinary tract infection, site not specified; E11.9 Type 2 diabetes mellitus without complications; W18.30XA Fall on same level, unspecified, initial encounter; E78.00 Pure hypercholesterolemia, unspecified

== ENCOUNTER 2016-09-25 22:52 | Emergency (ER) | payer OTHER ==
[2016-09-25 22:52] VITALS: BMI 30.9
[2016-09-25 23:08] VITALS: BP 128/80; PULSE 80; RESP 14; TEMP 98.1; O2SAT 99
[2016-09-25] MEDS ORDERED: Silver Sulfadiazine 1% Cream (20 gm) TOP STA (23:19)
--- NOTE | 2016-09-25 23:21 | C.PDOC ---
History Of Present Illness 50 year old female presents to the ED with complaints of a rash to the right upper arm. Patient states she received a pneumonia vaccine yesterday in the right upper arm. The arm became sore, she applied ice for 30 minutes to the area and developed redness to the area, the same size as the ice pack. Notes no erythema propr to icing the area. Patient denies itching, rash, sob, or tongue swelling. Time Seen by Provider: 09/25/16 23:08 Chief Complaint (Nursing): Abnormal Skin Integrity History Per: Patient History/Exam Limitations: no limitations Onset/Duration Of Symptoms: Hrs Current Symptoms Are (Timing): Still Present Quality Of Symptoms: Other (erythematus ). denies: Painful, Itching, Swollen, Draining Recent travel outside of the [place]: No Past Medical History Reviewed: Historical Data, Nursing Documentation, Vital Signs Vital Signs: Last Vital Signs Temp 98.1 F 09/25/16 23:04 Pulse 80 09/25/16 23:04 Resp 14 09/25/16 23:04 BP 128/80 09/25/16 23:04 Pulse Ox 99 09/26/16 03:36 - Medical History PMH: Arthritis (KNEE PAIN), Gall Bladder Disease, HTN, Hypercholesterolemia Family History: States: Unknown Family Hx - Social History Hx Tobacco Use: No Hx Alcohol Use: No Hx Substance Use: No - Immunization History Hx Tetanus Toxoid Vaccination: No Hx Influenza Vaccination: Yes Hx Pneumococcal Vaccination: No Review Of Systems Constitutional: Negative for: Fever, Chills ENT: Negative for: Throat Pain, Throat Swelling Cardiovascular: Negative for: Chest Pain, Palpitations Respiratory: Negative for: Cough, Shortness of Breath Skin: Positive for: Rash (rash to right upper arm ) Physical Exam - Physical Exam Appears: Non-toxic, No Acute Distress Skin: Warm, Dry, Other (6cm x 4cm area of erythmea to right deltoid with one 2 cm blister) Head: Atraumatic, Normacephalic Eye(s): bilateral: Normal Inspection, PERRL, EOMI Ear(s): Bilateral: Normal Nose: Normal, No Discharge Oral Mucosa: Moist Tongue: Normal Appearing, No Swelling Lips: Normal Appearing, No Swelling Throat: Normal, No Erythema, No Exudate Neck: Normal ROM, Supple Chest: Symmetrical, No Deformity Cardiovascular: Rhythm Regular Respiratory: Normal Breath Sounds, No Rales, No Rhonchi, No Wheezing Extremity: Normal ROM, No Tenderness, Capillary Refill (good capillary refill ) , No Swelling Pulses: Left Radial: Normal, Right Radial: Normal Neurological/Psych: Oriented x3, Normal Motor, Normal Sensation Gait: Steady ED Course And Treatment O2 Sat by Pulse Oximetry: 99 (room air ) Progress Note: Silvadene applied by RN. Instructed wound care. Patient was instructed to follow up with PMD in 1-2 days for further evaluation. Reevaluation Time: 23:45 Reassessment Condition: Improved Disposition - Disposition Disposition: HOME/ ROUTINE Disposition Time: 23:19 Condition: STABLE Additional Instructions: Follow up with primary medical doctor in 1-3 days without fail for further evaluation. Take medications as prescribed. Return to the emergency department at any time if symptoms persist or worsen. Prescriptions: Silver Sulfadiazine 1% [Silver Sulfadiazine] 1 appl TP DAILY #1 jar Instructions: Second Degree Burn (ED) - Clinical Impression Clinical Impression: Second degree burn - Scribe Statement The provider has reviewed the documentation as recorded by the Scribgurpreet Conway All medical record entries made by the Alyibgurpreet were at my direction and personally dictated by me. I have reviewed the chart and agree that the record accurately reflects my personal performance of the history, physical exam, medical decision making, and the department course for this patient. I have also personally directed, reviewed, and agree with the discharge instructions and disposition.
[2016-09-25] MEDS ORDERED: Silver Sulfadiazine 1% Cream (20 gm) ONE (23:28)
== END 2016-09-25 23:41 | disposition home or self-care (01) ==
LOC: C.ER 22:52
DX: T22.20XA Burn of second degree of shoulder and upper limb, except wrist and hand, unspecified site, initial encounter (principal); X08.8XXA Exposure to other specified smoke, fire and flames, initial encounter; E78.00 Pure hypercholesterolemia, unspecified; I10 Essential (primary) hypertension; M17.9 Osteoarthritis of knee, unspecified

== ENCOUNTER 2016-10-03 16:36 | Emergency (ER) | payer OTHER ==
[2016-10-03 16:36] VITALS: BMI 30.9
[2016-10-03 16:49] VITALS: BP 129/84; PULSE 99; RESP 18; TEMP 98.6; O2SAT 98
--- NOTE | 2016-10-03 18:01 | C.PDOC ---
History Of Present Illness Patient is a 50 y/o female that presents to the ED for removal of ninfa from right foot. Patient states that she injured her right ankle, and had ORIF surgery done in [place]. Patient was seen here last month for wound infection, and was admitted. Patient was given Rx for antibiotics, and was instructed to follow up with orthopedist at that time, but patient denies following up with orthopedist. Otherwise, pt denies any fever, chills, redness, swelling, pain, weakness, numbness, or any other associated symptoms at this time. Time Seen by Provider: 10/03/16 17:05 Chief Complaint (Nursing): Suture/Staple Removal History Per: Patient History/Exam Limitations: no limitations Onset/Duration Of Symptoms: Days Ago Current Symptoms Are (Timing): Still Present Location Of Injury: Right: Foot Quality Of Symptoms: denies: Painful, Itching, Swollen, Draining Severity: None Pain Scale Rating Of: 0 Recent travel outside of the [place]: No Additional History Per: Patient Past Medical History Reviewed: Historical Data, Nursing Documentation, Vital Signs Vital Signs: Last Vital Signs Temp 98.6 F 10/03/16 16:44 Pulse 99 H 10/03/16 16:44 Resp 18 10/03/16 16:44 BP 129/84 10/03/16 16:44 Pulse Ox 98 10/03/16 21:05 - Medical History PMH: Arthritis (KNEE PAIN), Gall Bladder Disease, HTN, Hypercholesterolemia Denies: Chronic Kidney Disease Family History: States: Unknown Family Hx - Social History Hx Tobacco Use: No Hx Alcohol Use: No Hx Substance Use: No - Immunization History Hx Tetanus Toxoid Vaccination: No Hx Influenza Vaccination: Yes Hx Pneumococcal Vaccination: No Review Of Systems Except As Marked, All Systems Reviewed And Found Negative. Constitutional: Negative for: Fever, Chills Musculoskeletal: Negative for: Foot Pain Neurological: Negative for: Weakness, Numbness Physical Exam - Physical Exam Appears: Non-toxic, No Acute Distress Skin: Normal Color, Warm, Dry, No Rash, No Other (Right foot: multiple intact ninfa to lateral and medial malleolus, no erythema, no skin lesion, small scar to lateral malleolus, and longer scar to medial malleolus) Head: Atraumatic, Normacephalic Eye(s): bilateral: Normal Inspection, EOMI Neck: Normal ROM, Supple Extremity: Normal ROM, No Tenderness (no right foot tenderness), No Calf Tenderness, Capillary Refill (< 2 sec.), No Deformity, No Swelling (no swelling or drainage from lateral or medial malleolus) Extremity: Bilateral: Normal Color And Temperature, Normal ROM Pulses: Left Dorsalis Pedis: Normal, Right Dorsalis Pedis: Normal Neurological/Psych: Oriented x3, Normal Speech, Normal Cognition, Normal Motor, Normal Sensation ED Course And Treatment O2 Sat by Pulse Oximetry: 98 (on RA) Pulse Ox Interpretation: Normal Progress Note: Patient was informed that ninfa from right foot cannot be removed here in the ER, and needs to follow up with orthopedist for staple removal. New dressing, and splint on the right foot was re-applied by CP and checked by me. Patient is being discharged home, and is given strict instructions to follow up with PMD and orthopedist in 1-2 days. Patient's PMD, Dr. Adri Carson was contacted, and informed about patient's follow up with orthopedist. Disposition - Disposition Referrals: Akilah Carson MD [Staff Provider] - [facility] [Outside] [facility] [Outside] Disposition: HOME/ ROUTINE Disposition Time: 17:59 Condition: STABLE Additional Instructions: Follow up with your PMD and Orthopedist within 1-2 days. Return to ED if feel worse. 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 - Scribe Statement The provider has reviewed the documentation as recorded by the Scribgurpreet Carson All medical record entries made by the Rosemarie were at my direction and personally dictated by me. I have reviewed the chart and agree that the record accurately reflects my personal performance of the history, physical exam, medical decision making, and the department course for this patient. I have also personally directed, reviewed, and agree with the discharge instructions and disposition.
== END 2016-10-03 18:33 | disposition home or self-care (01) ==
LOC: C.ER 16:36
DX: Z48.00 Encounter for change or removal of nonsurgical wound dressing (principal)